=== PATIENT | male | born 1965 | race Caucasian/White ===

== ENCOUNTER 2022-03-27 09:47 | Emergency (ER) | payer OTHER ==
[~2022-03-27] VITALS: Ht 172.7 cm; Wt 72.6 kg
[2022-03-27] MEDS ORDERED: ONDANSETRON ODT4 MG PO (15:33)
[2022-03-27] MEDS ORDERED: PEPCID AC20 MG PO (15:33)
== END 2022-03-27 15:51 ==
LOC: ER 09:47
DX: K29.70 Gastritis, unspecified, without bleeding (principal); N28.1 Cyst of kidney, acquired